=== PATIENT | female | born 1985 | race Caucasian/White ===

== ENCOUNTER 2017-03-21 15:00 | Emergency (ER) | payer OTHER ==
[~2017-03-21] VITALS: Ht 180.3 cm; Wt 105.0 kg
[2017-03-21] MEDS ORDERED: IOHEXOL 350 MG/ML 10 ML VIAL (for RAD DIAG) IVCONTRAST ONE (15:01)
[2017-03-21 15:27] VITALS: BP 124/73; PULSE 98; RESP 24; TEMP 98.7; O2SAT 100
--- NOTE | 2017-03-21 15:33 | PD ---
HPI Chief Complaint: Chest Pain Time Seen by Provider: 15:25 Travel History International Travel<30 days: No Contact w/Intl Traveler<30days: No Traveled to known affect area: No History of Present Illness HPI 31-year-old female who is an inactive carrier of factor V Leiden presents emergency department for evaluation of acute onset mid chest pain with mild shortness of breath. Shortness of breath has since subsided. Patient is visiting from , and flew here 2 days ago. Denies any recent illnesses, fever , or chills. Has no history of DVT or PE. She is on no anticoagulation therapy. Last Menstrual cycle was February 28, 2017. She has no other symptoms reported this time. [facility] Past Medical History Medical History: Denies Significant Hx ?: Unknown LMP: 03/03/17 Social History Tobacco Use: No Allergies-Medications (Allergen,Severity, Reaction): Coded Allergies: No Known Allergies (Unverified , 03/21/17) Reported Meds & Prescriptions Reported Meds & Active Scripts Active Naprosyn (Naproxen) 500 Mg Tab 500 Mg PO BID PRN Review of Systems Except as stated in HPI: all other systems reviewed are Neg Physical Exam Narrative GENERAL: Well-nourished female patient, ambulatory and in no acute distress. SKIN: Focused skin assessment warm/dry. HEAD: Atraumatic. Normocephalic. EYES: Pupils equal and round. No scleral icterus. No injection or drainage. ENT: No nasal bleeding or discharge. Mucous membranes pink and moist. NECK: Trachea midline. No JVD. CARDIOVASCULAR: Tachycardic rate and rhythm. No murmur appreciated. RESPIRATORY: No accessory muscle use. Clear to auscultation. Breath sounds equal bilaterally. GASTROINTESTINAL: Abdomen soft, non-tender, nondistended. Hepatic and splenic margins not palpable. MUSCULOSKELETAL: No obvious deformities. No clubbing. No cyanosis. No edema. NEUROLOGICAL: Awake and alert. No obvious cranial nerve deficits. Motor grossly within normal limits. Normal speech. PSYCHIATRIC: Appropriate mood and affect; insight and judgment normal. Data Data Last Documented VS Vital Signs Date Time Temp Pulse Resp B/P (MAP) Pulse Ox O2 Delivery O2 Flow Rate FiO2 03/21/17 19:12 82 16 114/65 (81) 100 03/21/17 18:34 Room Air 03/21/17 15:27 98.7 Orders Orders Al-Mag Hy-Si 40-40-4 Mg/Ml Liq (Mag-Al P (03/21/17 15:45) Lidocaine 2% Viscous (Xylocaine 2% Visco (03/21/17 15:45) Sodium Chlor 0.9% 1000 Ml Inj (Ns 1000 M (03/21/17 15:45) Electrocardiogram (03/21/17 15:39) Basic Metabolic Panel (Bmp) (03/21/17 15:39) Complete Blood Count With Diff (03/21/17 15:39) Prothrombin Time / Inr (Pt) (03/21/17 15:39) Act Partial Throm Time (Ptt) (03/21/17 15:39) Chest, Single Ap (03/21/17 15:39) Ecg Monitoring (03/21/17 15:39) Bilateral Bp Monitoring (03/21/17 15:39) Iv Access Insert/Monitor (03/21/17 15:39) Oximetry (03/21/17 15:39) Oxygen Administration (03/21/17 15:39) Sodium Chloride 0.9% Flush (Ns Flush) (03/21/17 15:45) Ct Pulmonary Angiogram (03/21/17 ) Ed Urine Pregnancytest Poc (03/21/17 15:48) Iohexol 350 Inj (Omnipaque 350 Inj) (03/21/17 15:01) Ed Discharge Order (03/21/17 18:33) Labs Laboratory Tests Test 03/21/17 15:56 White Blood Count 7.6 TH/MM3 Red Blood Count 4.55 MIL/MM3 Hemoglobin 13.6 GM/DL Hematocrit 39.9 % Mean Corpuscular Volume 87.8 FL Mean Corpuscular Hemoglobin 30.0 PG Mean Corpuscular Hemoglobin Concent 34.1 % Red Cell Distribution Width 14.2 % Platelet Count 201 TH/MM3 Mean Platelet Volume 8.5 FL Neutrophils (%) (Auto) 62.5 % Lymphocytes (%) (Auto) 27.4 % Monocytes (%) (Auto) 6.5 % Eosinophils (%) (Auto) 2.7 % Basophils (%) (Auto) 0.9 % Neutrophils # (Auto) 4.7 TH/MM3 Lymphocytes # (Auto) 2.1 TH/MM3 Monocytes # (Auto) 0.5 TH/MM3 Eosinophils # (Auto) 0.2 TH/MM3 Basophils # (Auto) 0.1 TH/MM3 CBC Comment DIFF FINAL Differential Comment Prothrombin Time 10.0 SEC Prothromb Time International Ratio 1.0 RATIO Activated Partial Thromboplast Time 24.4 SEC Blood Urea Nitrogen 7 MG/DL Creatinine 0.64 MG/DL Random Glucose 87 MG/DL Calcium Level 8.1 MG/DL Sodium Level 143 MEQ/L Potassium Level 3.5 MEQ/L Chloride Level 112 MEQ/L Carbon Dioxide Level 22.2 MEQ/L Anion Gap 9 MEQ/L Estimat Glomerular Filtration Rate 110 ML/MIN [facility] Medical Decision Making Medical Screen Exam Complete: Yes Emergency Medical Condition: Yes Medical Record Reviewed: Yes Differential Diagnosis Chest wall pain versus pleuritic pain versus PE versus indigestion versus cholecystitis versus pancreatitis Narrative Course 31-year-old female presents to emergency department for evaluation of acute onset chest pain with associated shortness of breath. Patient has an active factor V Leiden deficiency. She also has had recent travel. She appears nontoxic. Laboratory Tests Test 03/21/17 15:56 White Blood Count 7.6 TH/MM3 Red Blood Count 4.55 MIL/MM3 Hemoglobin 13.6 GM/DL Hematocrit 39.9 % Mean Corpuscular Volume 87.8 FL Mean Corpuscular Hemoglobin 30.0 PG Mean Corpuscular Hemoglobin Concent 34.1 % Red Cell Distribution Width 14.2 % Platelet Count 201 TH/MM3 Mean Platelet Volume 8.5 FL Neutrophils (%) (Auto) 62.5 % Lymphocytes (%) (Auto) 27.4 % Monocytes (%) (Auto) 6.5 % Eosinophils (%) (Auto) 2.7 % Basophils (%) (Auto) 0.9 % Neutrophils # (Auto) 4.7 TH/MM3 Lymphocytes # (Auto) 2.1 TH/MM3 Monocytes # (Auto) 0.5 TH/MM3 Eosinophils # (Auto) 0.2 TH/MM3 Basophils # (Auto) 0.1 TH/MM3 CBC Comment DIFF FINAL Differential Comment Prothrombin Time 10.0 SEC Prothromb Time International Ratio 1.0 RATIO Activated Partial Thromboplast Time 24.4 SEC Blood Urea Nitrogen 7 MG/DL Creatinine 0.64 MG/DL Random Glucose 87 MG/DL Calcium Level 8.1 MG/DL Sodium Level 143 MEQ/L Potassium Level 3.5 MEQ/L Chloride Level 112 MEQ/L Carbon Dioxide Level 22.2 MEQ/L Anion Gap 9 MEQ/L Estimat Glomerular Filtration Rate 110 ML/MIN Last Impressions Chest X-Ray 03/21/17 1539 Signed Impressions: Service Date/Time: Tuesday, March 21, 2017 16:00 - CONCLUSION: Normal examination for a patient of this age. Tad Crawford MD CT Angiography 03/21/17 0000 Signed Impressions: Service Date/Time: Tuesday, March 21, 2017 17:57 - CONCLUSION: 1. Negative for pulmonary embolus. No consolidation or effusion. Minimal dependent atelectasis in the lungs. Renny Hart MD Findings and lab work are reviewed. Patient is not currently having any pain. She'll be discharged home to follow-up with a primary care provider. She agrees to return immediately with any acute worsening of symptoms. Diagnosis Primary Impression: Chest wall pain Referrals: Primary Care Physician Patient Instructions: Chest Wall Pain (ED), General Instructions Additional Instructions: Follow-up with a primary care provider Return immediately with any acute worsening of symptoms Med/Other Pt SpecificInfo: Prescription(s) given Scripts Naproxen (Naprosyn) 500 Mg Tab 500 MG PO BID Y for PAIN SCALE 1 TO 10, #30 TAB 0 Refills Prov: Mena Farmer 03/21/17 Disposition: 01 DISCHARGE HOME Condition: Stable Mena Farmer Mar 21, 2017 15:33
[2017-03-21] MEDS ORDERED: SODIUM CHLORIDE 0.9% FLUSH 10 ML FLUSH IVF PRN (15:45)
[2017-03-21] MEDS ORDERED: LIDOCAINE VISCOUS 2% SOLN 15 ML UDC PO ONE (15:45)
[2017-03-21] MEDS ORDERED: SODIUM CHLOR 0.9% 1000 ML INJ 1,000 ML IV ONE (15:45)
[2017-03-21] MEDS ORDERED: ALUMINUM/MAGNESIUM/SIMETH 30 ML CUP PO ONE (15:45)
--- NOTE | 2017-03-21 16:06 | RADRPT ---
EXAM DATE/TIME: 03/21/2017 16:00 [facility] COMPARISON: No previous studies available for comparison. INDICATIONS : Chest pain. MEDICAL HISTORY : None. SURGICAL HISTORY : None. ENCOUNTER: Initial ACUITY: 1 day PAIN SCORE: 10/10 LOCATION: Bilateral chest FINDINGS: A single view of the chest demonstrates the lungs to be symmetrically aerated without evidence of mas s, infiltrate or effusion. The cardiomediastinal contours are unremarkable. Osseous structures are intact. CONCLUSION: Normal examination for a patient of this age. Tad Crawford MD on March 21, 2017 at 16:04 Board Certified Radiologist. This report was verified electronically.
[2017-03-21 16:27] LABS: AUTOMATED NEUTROPHIL # 4.7 TH/MM3 (1.8-7.7); BASOPHIL # 0.1 TH/MM3 (0-0.2); BASOPHIL % 0.9 % (0.0-2.0); EOSINOPHIL # 0.2 TH/MM3 (0-0.4); EOSINOPHIL % 2.7 % (0.0-4.0); HEMATOCRIT 39.9 % (35.0-46.0); HEMO FLAGS DIFF FINAL; LYMPH % 27.4 % (9.0-44.0); LYMPHOCYTE # 2.1 TH/MM3 (1.0-4.8); MEAN CELL VOLUME 87.8 FL (80.0-100.0); MEAN CORPUSCULAR HGB CONC 34.1 % (32.0-36.0); MONO % 6.5 % (0.0-8.0); NEUT % 62.5 % (16.0-70.0); PLATELET COUNT 201 TH/MM3 (150-450); RED BLOOD COUNT 4.55 MIL/MM3 (4.00-5.30); RED CELL DISTRIBUTION WIDTH 14.2 % (11.6-17.2); WHITE BLOOD COUNT 7.6 TH/MM3 (4.0-11.0)
[2017-03-21 16:35] LABS: APTT (PATIENT) 24.4 SEC (24.3-30.1)
[2017-03-21 16:47] LABS: BICARBONATE 22.2 MEQ/L (21.0-32.0); POTASSIUM 3.5 MEQ/L (3.5-5.1)
--- NOTE | 2017-03-21 18:28 | RADRPT ---
EXAM DATE/TIME: 03/21/2017 17:57 [facility] COMPARISON: No previous studies available for comparison. INDICATIONS : Substernal chest pain. IV CONTRAST: 64 cc Omnipaque 350 (iohexol) IV RADIATION DOSE: 17.15 CTDIvol (mGy) MEDICAL HISTORY : Gastroesophageal reflux disease. Blood clotting disorder. SURGICAL HISTORY : None. ENCOUNTER: Initial ACUITY: 1 day PAIN SCALE: 8/10 LOCATION: chest TECHNIQUE: Volumetric scanning of the chest was performed using a pulmonary embolism protocol MIP images were re constructed. Using automated exposure control and adjustment of the mA and/or kV according to patien t size, radiation dose was kept as low as reasonably achievable to obtain optimal diagnostic quality images. DICOM format image data is available electronically for review and comparison. Follow-up recommendations for detected pulmonary nodules are based at a minimum on nodule size and pa tient risk factors according to Fleischner Society Guidelines. FINDINGS: PULMONARY ARTERIES: No filling defects are seen in the pulmonary arteries through the segmental level. LUNGS: There is no consolidation or pneumothorax . No concerning pulmonary nodule is visualized. PLEURAE: There is no pleural thickening or pleural effusion. MEDIASTINUM: There is good visualization of the great vessels of the middle mediastinum. No evidence of mediastin al or hilar adenopathy/mass. MUSCULOSKELETAL: Within normal limits for patient age. MISCELLANEOUS: The visualized upper abdominal organs demonstrate no acute abnormality. CONCLUSION: 1. Negative for pulmonary embolus. No consolidation or effusion. Minimal dependent atelectasis in the lungs. Renny Hart MD on March 21, 2017 at 18:24 Board Certified Radiologist. This report was verified electronically.
[2017-03-21 18:34] VITALS: BP 114/65; PULSE 95; RESP 21; O2SAT 100
[2017-03-21] MEDS ORDERED: NAPR500 PO (18:36)
[2017-03-21 19:12] VITALS: BP 114/65
--- NOTE | 2017-03-22 13:07 | EKG ---
Date Performed: 03/21/2017 Time Performed: 17:15:51 PTAGE: 31 years EKG: Sinus rhythm NORMAL ECG NO PREVIOUS TRACING DOCTOR: Hugh Soni Interpretating Date/Time 03/22/2017 13:05:37
== END 2017-03-21 19:13 | disposition home or self-care (01) ==
LOC: NEPE 15:00
DX: R07.89 Other chest pain (principal); R06.02 Shortness of breath
CPT/HCPCS: 71010; 71275; 80048; 84703; 85025; 85610; 85730; 93005; 96360; 96361; 99285; J7030; Q9967